=== PATIENT | male | born 1940 | race Caucasian/White ===

== ENCOUNTER 2018-05-17 06:25 | Day surgery (SDC) | payer BC ==
[~2018-05-17] VITALS: Ht 162.6 cm; Wt 68.0 kg
[2018-05-17] MEDS ORDERED: TRANDOLAPRIL1 MG PO (06:44)
[2018-05-17] MEDS ORDERED: ASPIR-LOW81 MG PO (06:45)
--- NOTE | 2018-05-17 08:08 | NUR ---
05/17/18 0808 Maryam Jordan 0802- PT ARRIVES TO PACU AROUSABLE TO VOICE. PT REPORTS NO PAIN OR NAUSEA AND FALLS INSTANTLY BACK TO SLEEP. RESP EVEN AND UNLABORED. OXYGEN SAT HIGH 90'S ON 2L VIA NC. 0804- OXYGEN TURNED OFF. OXYGEN SAT MID 90'S ON RA. RESP EVEN AND UNLABORED.
--- NOTE | 2018-05-20 12:01 | OR ---
[facility] [address], [place] [address] Signed DATE OF OPERATION: 05/17/2018 SURGEON: Reji Gamez MD PREOPERATIVE DIAGNOSIS: History of hyperplastic polyp 2009. POSTOPERATIVE DIAGNOSES: 1. Diverticulosis (minimal). 2. Sessile polyp of the low rectum. 3. Possible flat polyp of mid rectum. PROCEDURES: Total colonoscopy to cecum with cold snare polypectomy x1 and cold morcellation polypectomy x1. ANESTHESIA: Intravenous sedation, fentanyl 100 mcg, Versed 3 mg. INDICATION: This 77-year-old white man is a patient of MIKEY Ayala, and underwent colonoscopy by il in 2009, at which time he was found to have a hyperplastic polyp. He is symptom free currently without bleeding, diarrhea, or constipation and has no family history of colon cancer. He is here for surveillance colonoscopy. He understands the risks of bleeding, infection, and perforation related to colonoscopy and wished to proceed. FINDINGS: The prep was excellent. Complete colonoscopy was undertaken to the cecum without problem. He had scattered diverticula of the sigmoid and left side and a few on the right colon as well. He had two polyps, one a sessile adenoma of the low rectum and another possibly flat polyp in the mid rectum. Both were excised. There were no other findings of concern. PROCEDURE IN DETAIL: The patient was brought to the endoscopy suite and placed in lateral decubitus position given intravenous sedation to the point of slurred speech and nystagmus. Digital rectal examination was normal. An Olympus video colonoscope was passed in the rectum and manipulated throughout the Electronically Signed By: REJI GAMEZ MD 05/20/18 1201 PATIENT NAME: YAJAIRA JOHNSON OPERATIVE REPORT DATE OF : 44 REPORT #: [id number] PHYSICIAN: REJI GAMEZ MD PCP: CHARLIE APONTE REPORT IS CONFIDENTIAL AND NOT TO BE RELEASED WITHOUT AUTHORIZATION [facility] [address], [place] [address] Signed colon ultimately intubating the cecum itself. The ileocecal valve and appendiceal orifice were normal. The scope was withdrawn from that point. Examination throughout showed no sign of abnormality other than diverticular changes of the right colon and left colon. In the low rectum in the midportion, was the area that appeared to be a flat polyp. Narrow band imaging made this a bit more visible though I am not entirely sure if it was adenomatous actually. Multiple biopsies were taken to obliterate the lesion. Retroflexed view demonstrated a sessile polyp of the very low rectum. This was excised with cold snare polypectomy technique. The scope was then removed and the patient was taken to recovery room in good condition. CONCLUDING DIAGNOSIS: At least one polyp likely adenoma, possibly a flat polyp as well. PLAN: We will check pathology. Repeat colonoscopy in 5 years if clinically appropriate based on his age and physical condition at that time. He will return to the ongoing care of MIKEY Ayala as usual. MD LUISA Reynoso/MARIANNE /[id number] cc: DORA Hernandez Copies: CHARLIE APONTE ~ Electronically Signed By: REJI GAMEZ MD 05/20/18 1201 PATIENT NAME: YAJAIRA JOHNSON OPERATIVE REPORT DATE OF : 44 REPORT #: [id number] PHYSICIAN: REJI GAMEZ MD PCP: CHARLIE APONTE REPORT IS CONFIDENTIAL AND NOT TO BE RELEASED WITHOUT AUTHORIZATION
== END 2018-05-17 08:41 | disposition home or self-care (01) ==
LOC: DS 06:25 → OPS 06:25 → DS 06:45 → OPS 08:41
PROVIDERS: Surgery
PROC: 0DBP8ZZ Excision of Rectum, Via Natural or Artificial Opening Endoscopic (ICD-10-PCS; principal; 2018-05-17 06:45)
DX: Z12.11 Encounter for screening for malignant neoplasm of colon (principal); K62.1 Rectal polyp; K57.30 Diverticulosis of large intestine without perforation or abscess without bleeding; I10 Essential (primary) hypertension; J44.9 Chronic obstructive pulmonary disease, unspecified; Z86.010 Personal history of colon polyps; Z87.891 Personal history of nicotine dependence
CPT/HCPCS: 88305; 99153; G0500; J0690; J2250; J3010; J7120

== ENCOUNTER 2024-02-18 10:18 | Day surgery (SDC) | payer BC ==
[~2024-02-18] VITALS: Ht 162.6 cm; Wt 74.5 kg
[~2024-02-18 10:18] MED LIST: ASPIR-LOW81 MG PO; CEFAZOLIN SODIUM 2 GM/20 ML SYR IV SCH; IBLOOD GLUCOSE TEST STRIP 1 EA TEST VI PRN; LACTATED RINGER'S 1,000 ML IV SCH; LIDOCAINE HCL 1% 5 ML SDV INJ ONE; LOSARTAN POTASS50 MG PO; MIDAZOLAM HCL 5 MG/5 ML VIAL IV PRN; MULTIVITAMIN1 EACH PO; OMEPRAZOLE20 MG PO; TRANDOLAPRIL1 MG PO; TURMERIC500 M3 PO; fentaNYL citrate 100 MCG/2 ML VIAL IV PRN
[2024-02-18 10:43] VITALS: BP 110/69
[2024-02-18] MEDS ORDERED: MIDAZOLAM HCL 5 MG/5 ML VIAL ONE (12:28)
[2024-02-18] MEDS ORDERED: fentaNYL citrate 100 MCG/2 ML VIAL ONE (12:28)
--- NOTE | 2024-02-18 13:05 | NUR ---
02/18/24 1305 Carine Nunez 1302-PATIENT ARRIVED TO PACU ON RA RR EVEN. PATIENT VERY DROWSY DENIES PAIN OR NAUSEA. LAYING LEFT LATERAL IVF INFUSING. ORIENTED TO PACU. CLOSES EYES.
[2024-02-18 13:38] VITALS: BP 116/71
--- NOTE | 2024-02-19 12:25 | OR ---
[facility] [address], [place] [address] Signed DATE OF OPERATION: 02/18/2024 SURGEON: Reji Gamez MD PREOPERATIVE DIAGNOSES: 1. Episodic fecal incontinence. 2. History of diverticulosis (colonoscopy 2019). 3. Distant history of anorectal surgery (Dr. Maria). POSTOPERATIVE DIAGNOSES: 1. Diverticulosis of colon. 2. Small polyp of low rectum. 3. Marginal sphincter tone with grade 4 hemorrhoid x1. PROCEDURE: Total colonoscopy to cecum with cold morcellation polypectomy x1. ANESTHESIA: Intravenous sedation; fentanyl 100 mcg and Versed 4 mg. INDICATION: This 83-year-old white man is a patient of DORA Palumbo. He was referred with complaints of episodic fecal incontinence. He underwent colonoscopy in 2019, which at that time included hyperplastic polyp of the rectum and no other findings of concern other than diverticula. He has undergone anorectal operation more than [address] Jonathan Maria and notes that a "cyst" was excised. Over the past year, he has had issues of issues of "rectal leakage" upon straining at stool. He has had no associated bleeding. He is admitted at this time to undergo colonoscopy understanding the risk of bleeding, infection, and perforation. FINDINGS: Anorectal sphincter tone was diminished to be sure. He did have a grade 4 hemorrhoid noted as well. Diverticula were noted in the sigmoid and in the low rectum there was a small adenomatous appearing polyp, which was excised. The remaining colon was normal. DESCRIPTION OF PROCEDURE: The patient was brought to the endoscopy suite and placed in the lateral decubitus position, given intravenous sedation to the point of slurred speech and nystagmus with Electronically Signed By: REJI GAMEZ MD 02/19/24 1225 PATIENT NAME: YAJAIRA JOHNSON OPERATIVE REPORT DATE OF : 44 REPORT #: [id number] PHYSICIAN: REJI GAMEZ MD PCP: CHARLIE GA PA-C REPORT IS CONFIDENTIAL AND NOT TO BE RELEASED WITHOUT AUTHORIZATION [facility] [address], [place] [address] Signed full cardiopulmonary monitoring. Digital rectal examination showed a marginal sphincter tone. There was no gross evidence of fecal incontinence at this time, however, otherwise. A hemorrhoidal area was noted as well. An Olympus video colonoscope was passed in the rectum and manipulated throughout the colon noting numerous diverticula of the sigmoid and left colon. Scope was ultimately passed to the cecum. Cecum was fully intubated. Good visualization of the ileocecal valve and appendiceal orifice were noted. The scope was then withdrawn and examination throughout showed no sign of abnormality into the left colon and sigmoid where diverticula were once again noted. In the rectum and retroflexed view, there was a small polyp just above the anal verge, which was excised with cold morcellation technique. The scope was more carefully withdrawn through the anorectal area showing no other abnormality. 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 The scope was removed and the patient was taken recovery room in good condition. CONCLUDING DIAGNOSIS: He may have some anorectal dysfunction related to prior anorectal surgery, particularly as he is very elderly and anorectal sphincter tone diminishes with age. Whether or not the grade 4 hemorrhoid crossing the anorectal boundary contributes to this is uncertain. I have recommended previously that he initiate a fiber supplement as it tends to bulk up the anorectum and allow for sensing of the anorectal area to enhance efforts at continence. He does not have severe enough obvious dysfunction at this time to warrant anoplasty or other similar intervention, but that would be a consideration in the future if necessary. As regards to the polyp, it has been fully excised and the diverticula are unchanged from the past, it appears. PLAN: He will again be recommended to initiate a fiber supplement either Citrucel or Metamucil powder only and if further problems with continence, I am happy to see him again at the request of his provider DORA Palumbo. MD LUISA Reynoso/LIZZL /[id number] Electronically Signed By: REJI GAMEZ MD 02/19/24 1225 PATIENT NAME: YAJAIRA JOHNSON OPERATIVE REPORT DATE OF : 44 REPORT #: [id number] PHYSICIAN: REJI GAMEZ MD PCP: CHARLIE GA PA-C REPORT IS CONFIDENTIAL AND NOT TO BE RELEASED WITHOUT AUTHORIZATION [facility] [address] [place] [id number] Signed cc: PA. Deepali Copies: ~ Electronically Signed By: REJI GAMEZ MD 02/19/24 1225 PATIENT NAME: YAJAIRA JOHNSON OPERATIVE REPORT DATE OF : 44 REPORT #: [id number] PHYSICIAN: REJI GAMEZ MD PCP: CHARLIE GA PA-C REPORT IS CONFIDENTIAL AND NOT TO BE RELEASED WITHOUT AUTHORIZATION
--- NOTE | 2024-02-23 18:37 | PATH ---
[facility] [address] [place], [place] [address] Signed SPECIMEN(S): A RECTAL POLYP SPECIMEN SOURCE: A. RECTAL POLYP CLINICAL HISTORY: Fecal incontinence. Post; rectal polyp FINAL PATHOLOGIC DIAGNOSIS: Rectum, polyp, biopsy: - Hyperplastic polyp. COMMENT: There is no evidence of dysplasia or malignancy. K MICROSCOPIC EXAMINATION: Histologic sections of all submitted blocks are examined by light microscopy. These findings, together with the gross examination, support the pathologic diagnosis. GROSS DESCRIPTION: The specimen, labeled and designated "Regino Fletcher, rectal polyp," is received in formalin and consists of one ortiz soft tissue fragment, 0.3 cm. Entirely submitted in (A1). AB (under the direct supervision of a pathologist) The Gross Description was prepared using a voice recognition system. The report was reviewed for accuracy; however, sound-alike word errors, addition and/or deletions may occur. If there is any question about this report, please contact Client Services. ADDITIONAL NOTES: Immunohistochemical and/or in situ hybridization studies if performed in this case included appropriate positive controls that reacted as expected. This test was developed and its performance characteristics determined by [facility]. It has not been cleared or approved by the U.S. Food and Drug Administration. The FDA has determined that such clearance or approval is not necessary. This test is used for clinical purposes. It should not be regarded as investigational or for research. [facility] is certified under the Clinical Laboratory Improvement PATIENT NAME: YAJAIRA FLETCHER PATHOLOGY DATE OF : 44 REPORT #: [id number] PHYSICIAN: MANJIT TERESA PCP: CHARLIE GA PA-C REPORT IS CONFIDENTIAL AND NOT TO BE RELEASED WITHOUT AUTHORIZATION [address] [place] [address] Signed Amendments of 1988 (CLIA) as qualified to perform high complexity clinical laboratory testing. PERFORMING LABORATORY: Technical component was performed by [facility], [address] [place] [address] (CLIA# [id number]). Professional interpretation [facility] performed by [facility], [facility] [place] [address] (CLIA#:[id number]). Diagnostician: Curtis Contreras MD Pathologist Electronically Signed 02/23/2024 Copies: ~ PATIENT NAME: YAJAIRA FLETCHER PATHOLOGY DATE OF : 44 REPORT #: [id number] PHYSICIAN: MANJIT TERESA PCP: CHARLIE GA PA-C REPORT IS CONFIDENTIAL AND NOT TO BE RELEASED WITHOUT AUTHORIZATION
== END 2024-02-18 13:45 | disposition home or self-care (01) ==
LOC: OPS 10:18 → DS 10:18 → OPS 11:45 → DS 14:00
PROVIDERS: ATTEND Surgery
PROC: 0DBP8ZZ Excision of Rectum, Via Natural or Artificial Opening Endoscopic (ICD-10-PCS; principal; 2024-02-18 11:45)
DX: Z12.11 Encounter for screening for malignant neoplasm of colon (principal); K62.1 Rectal polyp; K63.5 Polyp of colon; K57.30 Diverticulosis of large intestine without perforation or abscess without bleeding; K64.3 Fourth degree hemorrhoids; I10 Essential (primary) hypertension; Z79.899 Other long term (current) drug therapy
CPT/HCPCS: 99153; G0500; J0690; J2250; J3010; J7121

== ENCOUNTER 2025-01-06 10:06 | Emergency (ER) | payer BC ==
[~2025-01-06] VITALS: Ht 162.6 cm; Wt 65.3 kg
[~2025-01-06 10:06] MED LIST changes: -CEFAZOLIN SODIUM 2 GM/20 ML SYR IV SCH; -IBLOOD GLUCOSE TEST STRIP 1 EA TEST VI PRN; -LACTATED RINGER'S 1,000 ML IV SCH; -LIDOCAINE HCL 1% 5 ML SDV INJ ONE; -MIDAZOLAM HCL 5 MG/5 ML VIAL IV PRN; -fentaNYL citrate 100 MCG/2 ML VIAL IV PRN
[2025-01-06 11:12] VITALS: BP 134/93
== END 2025-01-06 11:20 | disposition home or self-care (01) ==
LOC: ED 10:06
DX: S01.511A Laceration without foreign body of lip, initial encounter (principal); S01.512A Laceration without foreign body of oral cavity, initial encounter; S01.81XA Laceration without foreign body of other part of head, initial encounter; I10 Essential (primary) hypertension; Z87.891 Personal history of nicotine dependence; Z79.82 Long term (current) use of aspirin; Z79.899 Other long term (current) drug therapy; W20.8XXA Other cause of strike by thrown, projected or falling object, initial encounter
CPT/HCPCS: 12013; 99282